=== PATIENT | female | born 1945 | race Caucasian/White ===

== ENCOUNTER → 2016-08-28 | Outpatient (CLI) | payer MEDICARE, OTHER ==
[~2016-08-28] MED LIST: BUDE10.22 IH; IPRA3AMP19 IH; LISI1TAB PO; LISI2.5T PO; MMT17NA NS; MNTL10T PO
--- NOTE | 2016-08-31 21:08 | Diagnostic Imaging Report ---
EXAM: Bilateral screening mammogram The current study was also evaluated with a Computer Aided Detection (CAD) system. INDICATION: Screening. No current complaints stated on the questionnaire. COMPARISON: 11/26/2015. FINDINGS: The breasts are composed of heterogeneously dense parenchyma which may decrease mammographic sensitivity. Benign calcifications are seen. Allowing for technique and positional differences, no suspicious change is seen. IMPRESSION: Dense breasts with no definite change. ACR BI-RADS Category 2: Benign findings. Result letter will be mailed to the patient. Note: At least 10% of breast cancer is not imaged by mammography. Dictated by: Dictated on workstation # [id number]
== END ==
LOC: RAD 09:32
DX: Z12.31 Encounter for screening mammogram for malignant neoplasm of breast (principal)
CPT/HCPCS: 77067

== ENCOUNTER → 2016-09-24 | Outpatient (CLI) | payer MEDICARE, OTHER ==
--- NOTE | 2016-09-24 11:17 | Diagnostic Imaging Report ---
PROCEDURE: CT abdomen and pelvis without contrast. TECHNIQUE: Multiple contiguous axial images were obtained through the abdomen and pelvis without the use of intravenous contrast. INDICATION: Abdominal mass. COMPARISON: 01/01/2016. FINDINGS: The lung bases appear clear. The liver demonstrates multiple cystic lesions and a solid mass measuring 2.7 cm better seen on the previous study that was performed with contrast and demonstrated features of a hemangioma. The largest cyst is in the left hepatic lobe measuring 5.6 cm. The gallbladder demonstrates no calcified stone. The spleen, the pancreas, and the adrenals appear unremarkable. There is no hydronephrosis. No urinary tract stones. The uterus and the adnexa appear grossly unremarkable. No significant free fluid or fluid collection in the abdomen or pelvis is seen. There is suggestion of a tiny fat-containing umbilical hernia. The abdominal aorta is normal in caliber. No para-aortic significantly enlarged lymph node is seen. The appendix is normal. Moderate amount of fecal material is seen in the colon. The osseous structures demonstrate prominent right convexity scoliosis centered in the upper lumbar spine with associated disc degenerative changes. IMPRESSION: Stable numerous liver cysts and 2.7 cm lesion in the inferior aspect of the right hepatic lobe previously demonstrated to be a hemangioma. Dictated by: Dictated on workstation # [id number]
--- NOTE | 2016-09-24 12:42 | Diagnostic Imaging Report ---
3 views of the lumbar spine. INDICATION: Low back pain. FINDINGS: There is a right convexity scoliosis seen. The alignment of the posterior spinal line is satisfactory. The vertebral body heights are preserved. There is moderate disc height loss at L5-S1 and L2-L3 levels. Vacuum phenomenon is noted also. There are mild sclerotic degenerative changes at the SI joints. There are moderate amounts of fecal material seen in the colon. IMPRESSION: Right convexity scoliosis and prominent disc degenerative changes. Dictated by: Dictated on workstation # [id number]
--- NOTE | 2016-09-24 14:13 | Diagnostic Imaging Report ---
Examination: DEXA scan. Indication: osteopenia Technique: Bone mineral density estimated based on dual energy radiography over the lumbar spine and femoral necks, was performed. Findings: The lumbar spine T-score is -2.1. The T score in the left femoral neck is -2.4 and on the right side is -2.1. IMPRESSION: Osteopenia. Dictated by: Dictated on workstation # [id number]
== END ==
LOC: RAD 08:39
DX: M81.0 Age-related osteoporosis without current pathological fracture (principal); R19.04 Left lower quadrant abdominal swelling, mass and lump; M54.5 Low back pain
CPT/HCPCS: 72100; 74176; 77080

== ENCOUNTER → 2017-08-30 | Outpatient (CLI) | payer MEDICARE, OTHER ==
--- NOTE | 2017-08-30 12:42 | Diagnostic Imaging Report ---
INDICATION: Routine screening Comparison is made with prior study from 08/28/2016, 08/26/2015. The current study was also evaluated with a Computer Aided Detection (CAD) system. Moderate parenchymal heterogeneity and increased density is noted. The parenchymal pattern is stable. No mass or malignant-appearing micro-calcifications are seen. Axillae are unremarkable. There are benign calcifications bilaterally. IMPRESSION: BI-RADS category 2 No mammographic features suspicious for malignancy are identified. ACR BI-RADS Category 2: Benign findings. Result letter will be mailed to the patient. Note: At least 10% of breast cancer is not imaged by mammography. Dictated by: Dictated on workstation # [id number]
== END ==
LOC: RAD 10:04
DX: Z12.31 Encounter for screening mammogram for malignant neoplasm of breast (principal)
CPT/HCPCS: 77067

== ENCOUNTER → 2018-08-30 | Outpatient (CLI) | payer MEDICARE, OTHER ==
--- NOTE | 2018-08-30 18:05 | Diagnostic Imaging Report ---
INDICATION: Routine screening. Comparison is made with prior mammograms from 08/30/2017 and 08/28/2016. 2-D and 3-D bilateral screening mammography was performed with Computer-Aided Detection (CAD) system. FINDINGS: Both breasts remain heterogeneously dense, limiting the sensitivity of mammography. Scattered benign calcifications are noted. No mass or malignant-appearing microcalcifications are seen. The axillae are unremarkable. IMPRESSION: No mammographic features suspicious for malignancy are identified. ACR BI-RADS Category 2: Benign findings. Result letter will be mailed to the patient. Note: At least 10% of breast cancer is not imaged by mammography. Dictated by: Dictated on workstation # [id number]
== END ==
LOC: RAD 08:28
DX: Z12.31 Encounter for screening mammogram for malignant neoplasm of breast (principal)
CPT/HCPCS: 77067

== ENCOUNTER → 2018-09-21 | Outpatient (CLI) | payer MEDICARE, OTHER ==
--- NOTE | 2018-09-21 14:26 | Diagnostic Imaging Report ---
INDICATION: Pleurodynia. EXAMINATION: PA and lateral chest. FINDINGS: There are emphysematous changes in the lungs. The heart size and pulmonary vascularity are normal. The lungs are clear. There are no effusions or pneumothoraces. IMPRESSION: Negative chest. Dictated by: Dictated on workstation # [id number]
--- NOTE | 2018-09-21 14:28 | Diagnostic Imaging Report ---
INDICATION: Pleurodynia. EXAMINATION: Right ribs. FINDINGS: Three views of the right ribs do not show any displaced fractures. There is no effusion or pneumothorax. IMPRESSION: Negative right ribs. Dictated by: Dictated on workstation # [id number]
== END ==
LOC: RAD 10:48
DX: R07.81 Pleurodynia (principal)
CPT/HCPCS: 71046; 71100

== ENCOUNTER → 2019-05-25 | Outpatient (CLI) | payer MEDICARE, OTHER ==
--- NOTE | 2019-05-25 12:27 | Diagnostic Imaging Report ---
INDICATION: Left-sided neck pain. TIME OF EXAM: 10:23 a.m. FINDINGS: AP, lateral, and odontoid views were obtained. Curvature is normal. There is minimal retrolisthesis of C4 on C5 and C5 on C6. Significant degenerative disc disease at the C4-C5 and C5-C6 levels is noted with disc space narrowing and marginal spurring. There is also multilevel facet arthropathy. No fractures are identified. Prevertebral tissues are normal. Odontoid appears to be intact. IMPRESSION: Cervical spondylosis. No acute bony abnormality is detected. Dictated by: Dictated on workstation # [id number]
== END ==
LOC: RAD 09:59
DX: M47.812 Spondylosis without myelopathy or radiculopathy, cervical region (principal)
CPT/HCPCS: 72040

== ENCOUNTER → 2019-07-25 | Outpatient (CLI) | payer MEDICARE, OTHER ==
--- NOTE | 2019-07-25 10:07 | Diagnostic Imaging Report ---
PROCEDURE: US carotid duplex, bilateral. TECHNIQUE: Multiple real-time grayscale images were obtained over the carotid arteries in various projections, bilaterally. Additional spectral analysis and color Doppler duplex images were also obtained. INDICATION: Syncope and dizziness. Parameters based on the consensus panel Thrasher-Scale and Doppler ultrasound criteria published April 2003, Radiology, Volume 229. DOPPLER (peak systolic velocity M/S Right Left CCA .95 1.22 ICA Proximal .59 .57 ICA Mid .80 1 ICA Distal .98 .95 RATIO 1 0.8 ECA 1.28 .95 VERT .68 .65 FINDINGS: There are no focally elevated velocities in either internal carotid artery. The ICA/CCA ratios are within normal limits, bilaterally. There is antegrade flow in the vertebral arteries, bilaterally. Grayscale images demonstrate minimal carotid plaque, bilaterally. IMPRESSION: Minimal bilateral carotid plaque however spectral analysis shows no evidence of a hemodynamically significant stenosis in either internal carotid artery. Dictated by: Dictated on workstation # [id number]
== END ==
LOC: RAD 08:39
PROVIDERS: ATTEND Nurse Practitioner Family
DX: I65.23 Occlusion and stenosis of bilateral carotid arteries (principal)
CPT/HCPCS: 93880

== ENCOUNTER → 2019-10-09 | Outpatient (CLI) | payer MEDICARE, OTHER ==
--- NOTE | 2019-10-09 12:36 | Diagnostic Imaging Report ---
INDICATION: Screening. EXAMINATION: Digital screening with CAD. COMPARED: 08/30/2018, 08/30/2017, and 09/01/2016. FINDINGS: The moderately dense parenchymal pattern shows no change with no mass, architectural distortion, spiculated lesion, or suspicious calcifications. IMPRESSION: Stable negative mammograms. ACR BI-RADS Category 1: Negative. Result letter will be mailed to the patient. Note: At least 10% of breast cancer is not imaged by mammography. Dictated by: Dictated on workstation # [id number]
== END ==
LOC: RAD 07:07
DX: Z12.31 Encounter for screening mammogram for malignant neoplasm of breast (principal)
CPT/HCPCS: 77063; 77067

== ENCOUNTER → 2020-10-10 | Outpatient (CLI) | payer MEDICARE, OTHER ==
--- NOTE | 2020-10-10 10:19 | Diagnostic Imaging Report ---
INDICATION: Routine screening. Comparison is made to prior mammogram 10/09/2019 and 08/30/2018. 2-D and 3-D bilateral screening mammography was performed with CAD. Both breasts are heterogeneously dense, limiting the sensitivity of mammography. There are benign calcifications. Parenchymal pattern is stable. No mass or malignant appearing microcalcifications are seen. Axillae are unremarkable. IMPRESSION: BI-RADS Category 2 No mammographic features suspicious for malignancy are identified. ACR BI-RADS Category 2: Benign findings. Result letter will be mailed to the patient. Note: At least 10% of breast cancer is not imaged by mammography. Dictated by: Dictated on workstation # [id number]
== END ==
LOC: RAD 07:45
DX: Z12.31 Encounter for screening mammogram for malignant neoplasm of breast (principal)
CPT/HCPCS: 77063; 77067

== ENCOUNTER → 2021-06-06 | Outpatient (CLI) | payer MEDICARE, OTHER ==
--- NOTE | 2021-06-06 08:37 | Diagnostic Imaging Report ---
Indication: Left hip pain 2 views of the left hip show no fracture, dislocation or other acute abnormalities. IMPRESSION: Negative left hip Dictated by: Dictated on workstation # [id number]
--- NOTE | 2021-06-06 09:07 | Diagnostic Imaging Report ---
INDICATION: Back pain EXAM: Lumbar spine AP and lateral views of the lumbar spine show scoliotic curvature, convex to the right. There is disc space narrowing at L1-L2, L2-L3 and L3-L4. Alignment is normal. IMPRESSION: Scoliosis. Degenerative disc changes with disc space narrowing in the upper lumbar spine. No acute abnormality is seen. Dictated by: Dictated on workstation # [id number]
--- NOTE | 2021-06-06 09:07 | Diagnostic Imaging Report ---
INDICATION: Back and abdominal pain PA chest, supine and upright abdominal images are obtained. FINDINGS: The lungs are clear. There are no effusions or pneumothoraces. There is no intraperitoneal free air. Bowel gas pattern is normal. There are no pathologic masses or calcifications. There is scoliosis of the lumbar spine convex to the right. IMPRESSION: No acute abnormality is seen in the abdomen. There is scoliosis of the thoracolumbar spine. Dictated by: Dictated on workstation # [id number]
== END ==
LOC: RAD 08:03
DX: M41.85 Other forms of scoliosis, thoracolumbar region (principal); M51.36 Other intervertebral disc degeneration, lumbar region; M48.061 Spinal stenosis, lumbar region without neurogenic claudication
CPT/HCPCS: 72100; 73502; 74022

== ENCOUNTER → 2021-09-16 | Outpatient (CLI) | payer MEDICARE, OTHER ==
--- NOTE | 2021-09-16 13:04 | Diagnostic Imaging Report ---
CLINICAL INDICATION: Patient with chronic low back pain. Lately pain is shooting into both hips in the morning. No history of cancer or surgery. EXAM: Axial CT scan of the lumbar spine performed without IV contrast. Sagittal and coronal reformatted images are created. Auto Exposure Controls were utilized during the CT exam to meet ALARA standards for radiation dose reduction. COMPARISON: X-ray of the lumbar spine dated 06/06/2021. FINDINGS: There is no acute lumbar spine fracture. There is right curvature of the thoracolumbar spine and incompletely imaged left curvature of the thoracic spine. There are degenerative spurs and facet arthropathy. T12-L1: There is a diffuse disc bulge and moderate loss of disc space height. There is no significant central canal or neural foramen narrowing. L1-L2: There is subtle grade 1 retrolisthesis of L1 on L2. There is a diffuse disc bulge with moderate loss of disc space height. There is vphbofmd-vs-ekxhds left neural foramen narrowing and mild right neural foramen narrowing. There is no significant central canal stenosis. L2-L3: There is a diffuse disc bulge with hwpolslj-bc-rprijd loss of disc space height. There is bilateral facet arthropathy. There is xcpn-bx-lgpatsjy bilateral neural foramen narrowing with the left side worse than the right. L3-L4: There is a diffuse disc bulge and sxkg-no-ggqydtus loss of disc space height. There is bwqz-lv-xatksdgp left neural foramen narrowing. There is no significant central canal stenosis. L4-L5: There is a mild diffuse disc bulge. There is no significant right neural foramen narrowing. There is mild left neural foramen narrowing. There is no significant central canal stenosis. L5-S1: There is a diffuse disc bulge with ovei-nu-lfkagdex loss of disc space height and vacuum disc changes. There is severe right facet arthropathy and moderate left facet arthropathy. There is no significant central canal stenosis. There is dpdsqpnb-cx-azxqjy right neural foramen narrowing and mild left neural foramen narrowing. IMPRESSION: 1: There is no acute lumbar spine fracture. 2: There is multilevel lumbar spine degenerative disease. Dictated by: Dictated on workstation # [id number]
== END ==
LOC: RAD 11:00
DX: M47.26 Other spondylosis with radiculopathy, lumbar region (principal); R79.89 Other specified abnormal findings of blood chemistry
CPT/HCPCS: 72131

== ENCOUNTER → 2021-10-13 | Outpatient (CLI) | payer MEDICARE, OTHER ==
--- NOTE | 2021-10-14 08:52 | Diagnostic Imaging Report ---
3-D bilateral screening mammogram with CAD. This study was compared to the prior exams as far back as 08/30/2017. At this time there are no current complaints. FINDINGS: The fibroglandular tissue in both breasts is heterogeneously dense. This does limit the sensitivity of this exam. Overall, there does not appear to have been any significant change when compared to the prior study. No primary or secondary sign of malignancy is noted. IMPRESSION: There is no radiographic evidence for malignancy. ACR BI-RADS Category 1: Negative. Result letter will be mailed to the patient. Note: At least 10% of breast cancer is not imaged by mammography. Dictated by: Dictated on workstation # [id number]
== END ==
LOC: RAD 07:30
DX: Z12.31 Encounter for screening mammogram for malignant neoplasm of breast (principal)
CPT/HCPCS: 77063; 77067

== ENCOUNTER 2022-02-02 10:25 | Emergency (ER) | payer MEDICARE, OTHER ==
[~2022-02-02] VITALS: Ht 165.1 cm; Wt 63.5 kg
[~2022-02-02 10:25] MED LIST changes: -ACHD5005 PO; -CATHETER FLUSH 10 ML SYR IV PRN; -HYDROcodone/APAP 5 MG/325 MG (LORTAB) TAB PO ONE; -IOHEXOL 350 MG/ML 100 ML (OMNIPAQUE 350) VIAL IV ONE; -NS 100 ML (IVPB) BAG IV ONE; -NS IV 500 ML 500 ML IV ONE; -fentaNYL INJ 100 MCG/2 ML AMP IVP ONE
[2022-02-02 10:30] VITALS: BP 173/78
--- NOTE | 2022-02-02 11:03 | ED Lower Extremity ---
General Chief Complaint: Lower Extremity Stated Complaint: FELL, R KNEE PAIN Nursing Triage Note: SLIPPED THIS AM ON WATER COMING OUT OF HER HOUSE INTO THE GARAGE AND LANDED ON HER RIGHT KNEE. Source: patient Exam Limitations: no limitations History of Present Illness Date Seen by Provider: Feb 02, 2022 Time Seen by Provider: 11:00 Initial Comments 76-year-old female presents emerged department today for right knee pain. Is dull throbbing anterior knee pain without radiation. She has not been able to bear weight since. She has not tried anything for the pain. She did not hit her head or lose consciousness. Allergies and Home Medications Allergies Coded Allergies: No Known Drug Allergies (Unverified , 09/08/10) Patient Home Medication List Home Medication List Reviewed: Yes Albuterol Sulfate/Ipratropium (Duoneb 2.5-0.5 Mg/3 Ml Soln) 3 Ml Solution, 3 ML IH Q6H, (Reported) Entered as Reported by: MILI PATTERSON on 09/11/10 165 Budesonide/Formoterol Fumarate (Symbicort 80-4.5 Mcg Inhaler) 10.2 Gm Hfa.aer.ad, 1 PUFF IH BID, (Reported) Entered as Reported by: MILI PATTERSON on 09/11/10 170 Hctz/Lisinopril (Lisinopril-Hctz 20-12.5 Mg Tab) 1 Each Tablet, 1 EACH PO BID, (Reported) Entered as Reported by: MARIAH ARVIZU on 09/08/10 1202 Mometasone Furoate (Nasonex) 17 Gm Irmo, 2 SPRAY NS BID, (Reported) Entered as Reported by: MILI PATTERSON on 09/11/10 170 Montelukast Sodium (Singulair 10 Mg) 10 Mg Tablet, 10 MG PO DAILY, (Reported) Entered as Reported by: MILI PATTERSON on 09/11/10 1659 Review of Systems Constitutional: no symptoms reported EENTM: no symptoms reported Respiratory: no symptoms reported Cardiovascular: no symptoms reported Gastrointestinal: no symptoms reported Musculoskeletal: joint pain Skin: no symptoms reported Psychiatric/Neurological: No Symptoms Reported Past Kdxjsid-Vvrnzt-Kiprlw Hx Patient Social History Tobacco Use?: No Use of E-Cig and/or Vaping dev: No Substance use?: No Alcohol Use?: No Pt feels they are or have been: No Immunizations Up To Date Influenza Vaccine Up-to-Date: Yes; Up-to-Date First/Initial COVID19 Vaccinat: 2020 Second COVID19 Vaccination Raj: 2020 Third COVID19 Vaccination Date: 2020 COVID19 Vaccine Investment Representative: JOSS Past Medical History Surgery/Hospitalization HX: HX OF HTN, HIGH CHOLESTEROL, HEART PALPATATIONS, TREMORS, COPD Reproductive Disorders: Yes Family Medical History Reviewed Nursing Family Hx No Pertinent Family Hx Physical Exam Vital Signs Vital Signs - First Documented 02/02/22 10:30 Temp 37.1 Pulse 81 Resp 18 B/P (MAP) 173/78 (109) Pulse Ox 97 O2 Delivery Room Air Capillary Refill : Less Than 3 Seconds Height, Weight, BMI Height: '" Weight: lbs. oz. kg; 23.00 BMI Method: General Appearance: WD/WN, no apparent distress HEENT: normal ENT inspection, pharynx normal Neck: non-tender Cardiovascular: normal peripheral pulses, regular rate, rhythm, no edema, no murmur Respiratory: chest non-tender, lungs clear, normal breath sounds, no respiratory distress Hips: bilateral hip non-tender, bilateral hip normal inspection, bilateral hip normal range of motion, bilateral hip no evidence of injury, bilateral hip bone tenderness, bilateral hip deformity, bilateral hip ecchymosis, bilateral hip limited range of motion, bilateral hip nodules, bilateral hip pain, bilateral hip soft tissue tenderness, bilateral hip swelling, bilateral hip other Legs: bilateral leg non-tender, bilateral leg normal inspection, bilateral leg normal range of motion, bilateral leg no evidence of injury, bilateral leg abrasions, bilateral leg bone tenderness, bilateral leg deformity, bilateral leg ecchymosis, bilateral leg joint effusion, bilateral leg limited range of motion, bilateral leg nodules, bilateral leg pain, bilateral leg soft tissue tenderness, bilateral leg swelling, bilateral leg other Knees: right knee other (Tenderness palpation anterior right knee. No muscle movements are intact. Negative anterior posterior drawer, Jeanmarie Jarred Prince valgus stress testing) Ankles: bilateral ankle non-tender, bilateral ankle normal inspection, bilateral ankle normal range of motion, bilateral ankle no evidence of injury, bilateral ankle abrasions/lacerations, bilateral ankle bone tenderness, bilateral ankle deformity, bilateral ankle ecchymosis, bilateral ankle joint effusion, bilateral ankle limited range of motion, bilateral ankle nodules, bilateral ankle pain, bilateral ankle soft tissue tenderness, bilateral ankle swelling, bilateral ankle other Feet: bilateral foot non-tender, bilateral foot normal inspection, bilateral foot normal range of motion, bilateral foot no evidence of injury, bilateral foot abrasions/lacerations, bilateral foot bone tenderness, bilateral foot deformity, bilateral foot ecchymosis, bilateral foot infection, bilateral foot limited range of motion, bilateral foot nail injury, bilateral foot nodule, bilateral foot pain, bilateral foot soft tissue tenderness, bilateral foot swelling, bilateral foot other Neurologic/Tendon: normal sensation, normal motor functions, normal tendon functions Neurologic/Psychiatric: alert, normal mood/affect, oriented x 3 Skin: normal color, warm/dry Progress/Results/Core Measures Results/Orders My Orders Orders - MYRTLE YOUSSEF DO Knee, Right, 3 Views (02/02/22 11:00) Vital Signs/I&O 02/02/22 10:30 Temp 37.1 Pulse 81 Resp 18 B/P (MAP) 173/78 (109) Pulse Ox 97 O2 Delivery Room Air Blood Pressure Mean: 109 Departure Communication (Admissions) Neurovascular and sensory intact. Right patellar fracture. Knee immobilizer placed, given crutches and discharged in stable condition with Ortho follow-up. Has been provided pain medication instruction for the same. She states understanding and is discharging stable condition. Impression Primary Impression: Right patella fracture Qualified Codes: S82.034A - Nondisplaced transverse fracture of right patella, initial encounter for closed fracture Disposition: HOME, SELF-CARE Condition: Stable Departure-Patient Inst. Referrals: PAULA MORRIS MD, RYAN C MD (PCP) Primary Care Physician Patient Instructions: Patella Fracture (DC) Add. Discharge Instructions: You were seen in the Emergency Department today for right knee pain. You have broken your patella or kneecap. Please keep the knee immobilizer in place. Use the pain medication as needed. Do not drive or make important decisions while taking the generic you drowsy. You may use ibuprofen or Aleve as well but not both. Follow-up with the orthopedic surgeon by calling to schedule an appointment. Return to the emergency department for any severe concerns All discharge instructions reviewed with patient and/or family. Voiced understanding. Scripts Hydrocodone Bit/Acetaminophen (HYDROcodone/APAP 5 MG/325 MG TAB) 1 Tab Tab 1 TAB PO Q6H for Pain for 3 Days, #12 TAB Prov: MYRTLE YOUSSEF DO 02/02/22 MYRTLE YOUSSEF DO Feb 02, 2022 11:02
--- NOTE | 2022-02-02 11:19 | Diagnostic Imaging Report ---
INDICATION: Fall with right knee pain. FINDINGS: Transverse fracture is noted through the midbody of the patella with minimal diastasis. Femoral condyles and tibial plateau are intact with smooth surfaces. IMPRESSION: Midbody transverse patellar fracture. Dictated by: Dictated on workstation # [id number]
[2022-02-02] MEDS ORDERED: ACHD5005 PO (11:27)
== END 2022-02-02 11:40 | disposition home or self-care (01) ==
LOC: EDUNIT# 10:25 → ER 10:26
DX: S82.031A Displaced transverse fracture of right patella, initial encounter for closed fracture (principal); W01.0XXA Fall on same level from slipping, tripping and stumbling without subsequent striking against object, initial encounter; Y92.009 Unspecified place in unspecified non-institutional (private) residence as the place of occurrence of the external cause
CPT/HCPCS: 73562; 99283; L1830

== ENCOUNTER → 2022-02-02 | Emergency (ER) | payer MEDICARE, OTHER ==
[~2022-02-02] VITALS: Ht 165 cm; Wt 63.5 kg
[~2022-02-02] MED LIST changes: +ACHD5005 PO; +CATHETER FLUSH 10 ML SYR IV PRN; +HYDROcodone/APAP 5 MG/325 MG (LORTAB) TAB PO ONE; +IOHEXOL 350 MG/ML 100 ML (OMNIPAQUE 350) VIAL IV ONE; +NS 100 ML (IVPB) BAG IV ONE; +NS IV 500 ML 500 ML IV ONE; +fentaNYL INJ 100 MCG/2 ML AMP IVP ONE
[2022-02-02 13:43] LABS: BASOPHILS # (AUTO) 0.1 10^3/uL (0.0-0.1); BASOPHILS % (AUTO) 1 % (0-10); EOSINOPHILS # (AUTO) 0.1 10^3/uL (0.0-0.3); EOSINOPHILS % (AUTO) 1 % (0-10); HEMATOCRIT 40 % (35-52); HEMOGLOBIN 13.6 g/dL (11.5-16.0); LYMPHOCYTES % (AUTO) 17 % (12-44); MEAN CORPUSCULAR HEMOGLOBIN 31 pg (25-34); MEAN CORPUSCULAR HGB CONC 34 g/dL (32-36); MEAN CORPUSCULAR VOLUME 92 fL (80-99); MEAN PLATELET VOLUME 10.3 fL (9.0-12.2); MONOCYTES # (AUTO) 0.9 10^3/uL (0.0-1.0); MONOCYTES % (AUTO) 8 % (0-12); NEUTROPHILS # (AUTO) 8.3 10^3/uL (1.8-7.8); NEUTROPHILS % (AUTO) 74 % (42-75); PLATELET COUNT 260 10^3/uL (130-400); WHITE BLOOD COUNT 11.3 10^3/uL (4.3-11.0)
[2022-02-02 13:44] LABS: ALBUMIN 4.1 GM/DL (3.2-4.5)
[2022-02-02 13:45] LABS: POTASSIUM 3.2 MMOL/L (3.6-5.0)
[2022-02-02 13:46] LABS: CALCIUM 9.1 MG/DL (8.5-10.1)
[2022-02-02 13:47] LABS: TOTAL PROTEIN 6.8 GM/DL (6.4-8.2)
[2022-02-02 13:49] LABS: BILIRUBIN,TOTAL 0.5 MG/DL (0.1-1.0)
[2022-02-02 13:51] LABS: CREATININE SERUM 0.84 MG/DL (0.60-1.30)
[2022-02-02 13:53] LABS: MAGNESIUM 1.8 MG/DL (1.6-2.4); PROTHROMBIN TIME PATIENT 13.5 SEC (12.2-14.7)
--- NOTE | 2022-02-02 13:58 | Diagnostic Imaging Report ---
INDICATION: Chest pain. Frontal chest obtained at 1:42 p.m. and compared to 09/21/2018. FINDINGS: Heart and mediastinal silhouette are normal in appearance. There is hyperinflation compatible with COPD. There is unchanged scarring at the right medial base. There is no new consolidation, pneumothorax, or pleural fluid. IMPRESSION: COPD changes with unchanged scarring in the right medial base. No acute infiltrate or pleural fluid. Dictated by: Dictated on workstation # [id number]
[2022-02-02 14:01] LABS: CREATINE KINASE MB 1.7 NG/ML (<6.6)
--- NOTE | 2022-02-02 14:22 | ED General ---
General Chief Complaint: Dizziness/Syncope Stated Complaint: NEAR SYNCOPE Nursing Triage Note: PT TO ED BY EMS WITH C/O SYNCOPAL EPISODE. PT REPORTS SHE WAS GOING INSIDE FROM THE CAR AFTER BEING DC HERE, HAD SOB, JAW PAIN AND BECAME VERY DIZZY. PT SAT IN CHAIR AND REPORTS LOC. PT A&O X 4, DENIES N/V/D, CP, HEMPH[place] AT THIS TIME. Source of Information: Patient Exam Limitations: No Limitations History of Present Illness Date Seen by Provider: Feb 02, 2022 Time Seen by Provider: 14:21 Allergies and Home Medications Allergies Coded Allergies: No Known Drug Allergies (Unverified , 09/08/10) Patient Home Medication List Albuterol Sulfate/Ipratropium (Duoneb 2.5-0.5 Mg/3 Ml Soln) 3 Ml Solution, 3 ML IH Q6H, (Reported) Entered as Reported by: MILI PATTERSON on 09/11/10 1659 Budesonide/Formoterol Fumarate (Symbicort 80-4.5 Mcg Inhaler) 10.2 Gm H fa.aer.ad, 1 PUFF IH BID, (Reported) Entered as Reported by: MILI PATTERSON on 09/11/10 1702 Hctz/Lisinopril (Lisinopril-Hctz 20-12.5 Mg Tab) 1 Each Tablet, 1 EACH PO BID, (Reported) Entered as Reported by: MARIAH ARVIZU on 09/08/10 1202 Hydrocodone Bit/Acetaminophen (HYDROcodone/APAP 5 MG/325 MG TAB) 1 Tab Tab, 1 TAB PO Q6H Prescribed by: MYRTLE YOUSSEF MD on 02/02/22 1127 Mometasone Furoate (Nasonex) 17 Gm [place], 2 SPRAY NS BID, (Reported) Entered as Reported by: MILI PATTERSON on 09/11/10 1702 Montelukast Sodium (Singulair 10 Mg) 10 Mg Tablet, 10 MG PO DAILY, (Reported) Entered as Reported by: MILI PATTERSON on 09/11/10 1659 Past Spxiiqd-Pvgoye-Rmzqbs Hx Patient Social History Tobacco Use?: No Use of E-Cig and/or Vaping dev: No Substance use?: No Alcohol Use?: No Pt feels they are or have been: No Immunizations Up To Date Influenza Vaccine Up-to-Date: No; Not Current First/Initial COVID19 Vaccinat: 2020 Second COVID19 Vaccination Raj: 2020 Third COVID19 Vaccination Date: 2020 COVID19 Vaccine Wheel Polisher: JOSS Past Medical History Surgery/Hospitalization HX: HX OF HTN, HIGH CHOLESTEROL, HEART PALPATATIONS, TREMORS, COPD Reproductive Disorders: Yes Family Medical History No Pertinent Family Hx Physical Exam Vital Signs Vital Signs - First Documented 02/02/22 13:13 Temp 36.4 Pulse 64 Resp 15 B/P (MAP) 107/71 (83) Pulse Ox 98 O2 Delivery Room Air Capillary Refill : Height, Weight, BMI Height: '" Weight: lbs. oz. kg; 23.00 BMI Method: Progress/Results/Core Measures Suspected Sepsis SIRS Temperature: Pulse: 64 Respiratory Rate: 15 Laboratory Tests 02/02/22 13:25: White Blood Count 11.3H Blood Pressure 107 /71 Mean: 83 Laboratory Tests 02/02/22 13:25: Creatinine 0.84, INR Comment 1.0, Platelet Count 260, Total Bilirubin 0.5 Results/Orders Lab Results Laboratory Tests Test 02/02/22 13:25 Range/Units White Blood Count 11.3 H 4.3-11.0 10^3/uL Red Blood Count 4.38 3.80-5.11 10^6/uL Hemoglobin 13.6 11.5-16.0 g/dL Hematocrit 40 35-52 % Mean Corpuscular Volume 92 80-99 fL Mean Corpuscular Hemoglobin 31 25-34 pg Mean Corpuscular Hemoglobin Concent 34 32-36 g/dL Red Cell Distribution Width 12.3 10.0-14.5 % Platelet Count 260 130-400 10^3/uL Mean Platelet Volume 10.3 9.0-12.2 fL Immature Granulocyte % (Auto) 0 % Neutrophils (%) (Auto) 74 42-75 % Lymphocytes (%) (Auto) 17 12-44 % Monocytes (%) (Auto) 8 0-12 % Eosinophils (%) (Auto) 1 0-10 % Basophils (%) (Auto) 1 0-10 % Neutrophils # (Auto) 8.3 H 1.8-7.8 10^3/uL Lymphocytes # (Auto) 2.0 1.0-4.0 10^3/uL Monocytes # (Auto) 0.9 0.0-1.0 10^3/uL Eosinophils # (Auto) 0.1 0.0-0.3 10^3/uL Basophils # (Auto) 0.1 0.0-0.1 10^3/uL Immature Granulocyte # (Auto) 0.0 0.0-0.1 10^3/uL Prothrombin Time 13.5 12.2-14.7 SEC INR Comment 1.0 0.8-1.4 Activated Partial Thromboplast Time 29 24-35 SEC D-Dimer 3.94 H 0.00-0.49 UG/ML Sodium Level 140 135-145 MMOL/L Potassium Level 3.2 L 3.6-5.0 MMOL/L Chloride Level 104 98-107 MMOL/L Carbon Dioxide Level 27 21-32 MMOL/L Anion Gap 9 5-14 MMOL/L Blood Urea Nitrogen 13 7-18 MG/DL Creatinine 0.84 0.60-1.30 MG/DL Estimat Glomerular Filtration Rate 72 BUN/Creatinine Ratio 15 Glucose Level 117 H 70-105 MG/DL Calcium Level 9.1 8.5-10.1 MG/DL Corrected Calcium 9.0 8.5-10.1 MG/DL Magnesium Level 1.8 1.6-2.4 MG/DL Total Bilirubin 0.5 0.1-1.0 MG/DL Aspartate Amino Transf (AST/SGOT) 20 5-34 U/L Alanine Aminotransferase (ALT/SGPT) 15 0-55 U/L Alkaline Phosphatase 65 40-136 U/L Creatine Kinase MB 1.7 <6.6 NG/ML Myoglobin 50.2 10.0-92.0 NG/ML Troponin I < 0.028 <0.028 NG/ML B-Type Natriuretic Peptide 89.9 <100.0 PG/ML Total Protein 6.8 6.4-8.2 GM/DL Albumin 4.1 3.2-4.5 GM/DL My Orders Orders - ALISIA AL APRN Ekg Tracing (02/02/22 13:14) Cbc With Automated Diff (02/02/22 13:35) Magnesium (02/02/22 13:35) Chest 1 View, Ap/Pa Only (02/02/22 13:35) Comprehensive Metabolic Panel (02/02/22 13:35) Myoglobin Serum (02/02/22 13:35) Protime With Inr (02/02/22 13:35) Partial Thromboplastin Time (02/02/22 13:35) O2 (02/02/22 13:35) Monitor-Rhythm Ecg Trace Only (02/02/22 13:35) Ed Iv/Invasive Line Start (02/02/22 13:35) Creatine Kinase Mb (02/02/22 13:35) Bnp [place] (02/02/22 13:35) Fibrin Degradation Products (02/02/22 13:35) Troponin I [place] (02/02/22 13:35) Ct Head Wo (02/02/22 14:27) Ct Angio Chest W (02/02/22 14:27) Iohexol Injection (Omnipaque 350 Mg/Ml 1 (02/02/22 14:30) Ns (Ivpb) (Sodium Chloride 0.9% Ivpb Bag (02/02/22 14:30) Sodium Chloride Flush (Catheter Flush Sy (02/02/22 14:30) Fentanyl Inj (Sublimaze Injection) (02/02/22 15:30) Ns Iv 500 Ml (Sodium Chloride 0.9%) (02/02/22 15:45) Medications Given in ED Current Medications Medications Dose Ordered Sig/Terry Route Start Time Stop Time Status Last Admin Dose Admin Fentanyl Citrate 25 mcg ONCE ONCE IVP 02/02/22 15:30 02/02/22 15:31 DC 02/02/22 15:22 25 MCG Iohexol 100 ml ONCE ONCE IV 02/02/22 14:30 02/02/22 14:34 DC 02/02/22 14:51 61 ML Sodium Chloride 10 ml NEEDED PRN IV 02/02/22 14:30 02/02/22 14:51 10 ML Sodium Chloride 100 ml ONCE ONCE IV 02/02/22 14:30 02/02/22 14:34 DC 02/02/22 14:51 80 ML Sodium Chloride 500 ml @ 0 mls/hr Q0M ONCE IV 02/02/22 15:45 02/02/22 15:46 DC 02/02/22 15:41 0 MLS/HR Vital Signs/I&O 02/02/22 13:13 Temp 36.4 Pulse 64 Resp 15 B/P (MAP) 107/71 (83) Pulse Ox 98 O2 Delivery Room Air Capillary Refill : Blood Pressure Mean: 83 Departure Impression Primary Impression: Syncope Additional Impression: Right patella fracture Disposition: 01 HOME, SELF-CARE Condition: Improved Departure-Patient Inst. Decision time for Depature: 15:58 Referrals: BERLIN HERNADEZ MD (PCP/Family) Primary Care Physician Patient Instructions: Syncope (Fainting) (DC) Add. Discharge Instructions: Plan: 1. Follow up with Dr. Clayton regarding your right knee as previously directed. 2. Use wheel chair to help reduce stress with ambulation. 3. Return to ER for any new, concerning, or worsening symptoms. All discharge instructions reviewed with patient and/or family. Voiced understanding. ALISIA AL MARINE ENGINE MECHANIC Feb 02, 2022 14:22
--- NOTE | 2022-02-02 14:58 | Diagnostic Imaging Report ---
EXAMINATION: CT head without contrast. TECHNIQUE: Multiple contiguous axial images were obtained through the brain without the use of intravenous contrast. All CT scans use one or more of the following dose optimizing techniques: automated exposure control, MA and/or KvP adjustment based on patient size and exam type or iterative reconstruction. HISTORY: Syncopal episode. Headache. Dizziness. COMPARISON: None available. FINDINGS: No large acute territorial ischemia, mass, or hemorrhage. No midline shift or mass effect. The ventricles, cortical sulci, and basilar cisterns are patent and unremarkable. The orbits are normal. Paranasal sinuses are normal. Mastoid air cells are clear. No soft tissue abnormality is seen. No osseous lesions or fractures are seen. IMPRESSION: 1. No large acute territorial ischemia, mass, or hemorrhage. Dictated by: Dictated on workstation # [id number]
--- NOTE | 2022-02-02 15:11 | Diagnostic Imaging Report ---
PROCEDURE: CT angiography of the chest with contrast. TECHNIQUE: Multiple contiguous axial images were obtained through the chest after uneventful bolus administration of intravenous contrast. 3D reconstructed CTA MIP acquisitions were also performed. Auto Exposure Controls were utilized during the CT exam to meet ALARA standards for radiation dose reduction. INDICATION: Headache. Elevated D-dimer. Syncopal episode. Shortness of breath. COMPARISON: Chest radiograph performed earlier the same date. FINDINGS: This helical CT pulmonary angiogram is diagnostic to the subsegmental level branches of the pulmonary artery and demonstrates no pulmonary emboli. The heart size is prominent. There is no pericardial effusion. Aberrant right subclavian artery is noted. There is no axillary, mediastinal, or hilar adenopathy. Small amount of dependent opacities are seen in the lung bases. No focal consolidation or mass. No central endobronchial obstructing lesion. No pleural effusion or pneumothorax. Osseous structures appear normal. Small hiatal hernia is seen. Benign-appearing cysts are seen in the liver. IMPRESSION: 1. No acute pulmonary embolus. 2. Cardiomegaly. No overt pulmonary edema. 3. Incidentally noted aberrant right subclavian artery. 4. Small amount of dependent opacities in the lung bases. 5. Small hiatal hernia. Dictated by: Dictated on workstation # [id number]
[2022-02-02 16:08] VITALS: BP 138/82
== END ==
LOC: EDUNIT# 13:09 → ER 13:12
DX: R55 Syncope and collapse (principal); S82.001A Unspecified fracture of right patella, initial encounter for closed fracture; X58.XXXA Exposure to other specified factors, initial encounter
CPT/HCPCS: 36415; 70450; 71045; 71275; 80053; 82553; 83735; 83874; 83880; 84484; 85025; 85379; 85610; 85730; 93005; 93041

== ENCOUNTER → 2022-10-14 | Outpatient (CLI) | payer MEDICARE, OTHER ==
[~2022-10-14] MED LIST changes: +ACHD5005 PO
--- NOTE | 2022-10-14 09:11 | Diagnostic Imaging Report ---
INDICATION: Routine screening. COMPARISON: 10/13/2021 and 10/10/2020. TECHNIQUE: 2D and 3D bilateral screening mammography was performed with CAD. FINDINGS: Both breasts are heterogeneously dense, limiting the sensitivity of mammography. The parenchymal pattern is stable. No dominant mass or malignant-appearing microcalcifications are seen. There are scattered benign calcifications bilaterally. The axillae are unremarkable. IMPRESSION: No mammographic features suspicious for malignancy are identified. ACR BI-RADS Category 2: Benign findings. Result letter will be mailed to the patient. Note: At least 10% of breast cancer is not imaged by mammography. Dictated by: Dictated on workstation # [id number]
== END ==
LOC: RAD 08:00
PROVIDERS: ATTEND Nurse Practitioner
DX: Z12.31 Encounter for screening mammogram for malignant neoplasm of breast (principal)
CPT/HCPCS: 77063; 77067